=== PATIENT | female | born 1960 | race Two or more races ===

== ENCOUNTER 2020-07-06 08:01 | Emergency (ER) | payer OTHER ==
[~2020-07-06] VITALS: Ht 162.6 cm; Wt 61.2 kg
== END 2020-07-06 11:51 ==
LOC: ER 08:01
DX: S42.222A 2-part displaced fracture of surgical neck of left humerus, initial encounter for closed fracture (principal); S50.312A Abrasion of left elbow, initial encounter; S05.12XA Contusion of eyeball and orbital tissues, left eye, initial encounter; W18.09XA Striking against other object with subsequent fall, initial encounter; Y93.02 Activity, running; Y92.488 Other paved roadways as the place of occurrence of the external cause; Y99.8 Other external cause status